=== PATIENT | female | born 1935 | race Caucasian/White ===

== ENCOUNTER 2023-06-21 16:49 | Inpatient (IN) | payer OTHER, SELFPAY ==
[2023-06-21 11:01] VITALS: BP 160/82
--- NOTE | 2023-06-21 11:41 | ED.GENMED ---
History of Present Illness
<Alexandria Dee PA-C - Last Filed: 06/21/23 19:06>
General
Chief Complaint: Breathing Problem
Source: patient, spouse and family (daughter)
Exam Limitations: none
Time Seen by Provider: 06/21/23 11:22
Nursing documentation reviewed up to this point in time: agreed with
Travel History
Have you had any contact with someone who has COVID-19?: No
Do you have any symptoms of coronavirus? Fever > 100 degrees, chills, cough, shortness of breath, sore throat, loss of taste or smell, muscle aches, or headache?: Yes
Symptoms:: SOB and cough
History of Present Illness
History of Present Illness:
Patient is an 88-year-old female with history of CVA, hypertension, hyperlipidemia, pacemaker presenting for evaluation of worsening shortness of breath. Patient endorses a URI a few weeks ago with a productive cough and nasal congestion. Symptoms
seem to improve but over the past week or so shortness of breath has progressively worsened. She notices shortness of breath both at rest and with exertion. She denies any fever, chills, persistent cough, or chest pain. She denies any hematemesis
or black/bloody stool. She denies any GI symptoms.
Patient is on warfarin following a stroke few years ago and has blood counts checked biweekly which have been in normal range.
She denies any recent travel or surgeries. She has no personal or family history of blood clots or clotting disorders.
Past History
<Alexandria Dee PA-C - Last Filed: 06/21/23 19:06>
Past History
ED Past Medical History: Arrthythmia, GERD, HTN and Other (hiatal hernia)
ED Past Surgical History: Cardiac and Orthopedic
Social History
Tobacco: Non-smoker
Alcohol: None
Drug: None
Personal:
Living: with family
Employment: Retired
Phy Exam
<Alexandria Dee PA-C - Last Filed: 06/21/23 19:06>
Physical Exam
Physical Exam:
General: In no apparent distress and non-toxic
Vitals: Hypertensive, otherwise vital signs stable; afebrile
HEENT: Atraumatic, normocephalic; pupils equal round and reactive to light bilaterally protecting airway
Neck: appears supple, no JVD
CV: Regular rate and rhythm, heart sounds normal, no evidence of cyanosis
Resp: No evidence of respiratory distress, scattered crackles at bases, otherwise clear
Abd: Soft, nontender in all 4 quadrants, non-distended
Extremities: No deformities, 2+ pitting edema bilateral lower extremities; DP pulses palpable
Neuro: alert and oriented x 3; grossly intact
Psych: Normal affect
Skin: Intact, some venous stasis changes of bilateral lower legs
Scores
<Alexandria Dee PA-C - Last Filed: 06/21/23 19:06>
Heart Failure Risk
Heart Failure Risk Score: Yes
History of Stroke or TIA: Yes
History of intubation for respiratory distress: No
Heart rate on ED arrival >/= 110: No
SaO2 <90% on arrival on room air: No
HR >/=110 during 3min walk test (or too ill to perform test): No
ECG has acute ischemic changes: No
Urea >/=12mmol/L (BUN 33.6mg/dL): Yes
Serum CO2>/=35mmol/L: Yes
Troponin I or T elevated to MO Level (0.4mg/dL): No
NT-proBNP >/=5,000ng/L (5,000pg/ml): Yes
HF Risk Score: 5
Admission Status: VERY HIGH RISK 39.8% Consider admission to hospital
<Emery Lopez DO - Last Filed: 06/23/23 10:58>
Heart Failure Risk
HF Risk Score: 5
Admission Status: VERY HIGH RISK 39.8% Consider admission to hospital
Course
<Alexandria Dee PA-C - Last Filed: 06/21/23 19:06>
Orders/Labs/Results
Orders:
Orders
06/21/23 11:08
Electrocardiogram (*1) Urgent
Reason for Study: Chest Pain
EKG- Treatment ONCE
06/21/23 11:51
CR Chest - 2 Views Urgent
Comment:
Reason For Exam: shortness of breath
06/21/23 12:02
COVID-19 Antigen Urgent
Source: Nasal Swab
Complete Blood Count/With Diff Urgent
Comprehensive Metabolic Panel Urgent
NT-proBNP Urgent
PTT Urgent
Prothrombin Time Urgent
Influenza A+B Rapid Molecular Urgent
MARIMAR Source: Nasal Swab
Specimen Description:
06/21/23 13:31
Furosemide [Lasix] 40 mg IV ONCE ONE
06/21/23 14:13
Admit Patient As Directed
Co-Sign Provider:
Level of Care: Inpatient admission
Assign to:: Telemetry
Physician / Group: Hang Melendez
Diagnosis: CHF
Reason for Telemetry: Acute Heart Failure
Date to Stop Telemetry: 06/24/23
Time to Stop Telemetry: 11:00
Reason for Hospitalization: CHF
Expected length of stay greater than two midnights?: Yes
ELOS- Estimated Length of Stay in days: 4
I certify the patient meets the requirements for IP care: Yes
06/21/23 14:15
DX Deep Vein Thrombosis Video Routine
06/21/23 16:44
Code Status As Directed
Resuscitation Status: Full Code
06/21/23 18:00
Enoxaparin Sodium [Lovenox] 40 mg SC QPM
06/22/23 08:00
Furosemide [Lasix] 40 mg IV DAILY
06/24/23 11:00
DC Protocol for Telemetry ONCE
Abnormal Lab Results
06/21/23
12:02
Hct 47.1 H %
(37.0-47.0)
MCH 32.6 H pg
(27.0-31.0)
RDW 15.2 H %
(11.5-14.5)
MPV 10.8 H fL
(7.4-10.4)
Absolute Lymphs (auto) 1.0 L 10^3/uL
(1.2-3.4)
Absolute Monos (auto) 1.0 H 10^3/uL
(0.1-0.6)
Neutrophils % 75.8 H %
(42.2-75.2)
Lymphocytes % 11.6 L %
(20.5-51.1)
Monocytes % 11.6 H %
(1.7-9.3)
PT 29.9 H Sec
(11.4-14.6)
APTT 43.3 H Sec
(23.4-35.0)
BUN 40 H mg/dl
(7-17)
Creatinine 1.2 H mg/dL
(0.6-1.0)
Glucose 128 H mg/dl
(70-99)
Total Bilirubin 1.7 H mg/dl
(0.2-1.3)
AST 47 H U/L
(14-36)
Alkaline Phosphatase 289 H U/L
(38-126)
06/21/23 12:02
06/21/23 12:02
Vital Signs
Initial and Last Documented VS:
Initial Vital Signs
Temp Pulse Resp BP Pulse Ox
97.9 F 60 22 160/82 96
06/21/23 11:01 06/21/23 11:01 06/21/23 11:01 06/21/23 11:01 06/21/23 11:01
Last Documented Vital Signs
Temp Pulse Resp BP Pulse Ox
97.8 F 64 18 142/67 95
06/23/23 07:00 06/23/23 10:10 06/23/23 07:00 06/23/23 10:10 06/23/23 07:00
<Emery Lopez, DO - Last Filed: 06/23/23 10:58>
Orders/Labs/Results
Orders:
Orders
06/21/23 11:08
Electrocardiogram (*1) Urgent
Reason for Study: Chest Pain
EKG- Treatment ONCE
06/21/23 11:51
CR Chest - 2 Views Urgent
Comment:
Reason For Exam: shortness of breath
06/21/23 12:02
COVID-19 Antigen Urgent
Source: Nasal Swab
Complete Blood Count/With Diff Urgent
Comprehensive Metabolic Panel Urgent
NT-proBNP Urgent
PTT Urgent
Prothrombin Time Urgent
Influenza A+B Rapid Molecular Urgent
MARIMAR Source: Nasal Swab
Specimen Description:
06/21/23 13:31
Furosemide [Lasix] 40 mg IV ONCE ONE
06/21/23 14:13
Admit Patient As Directed
Co-Sign Provider:
Level of Care: Inpatient admission
Assign to:: Telemetry
Physician / Group: Hang Melendez
Diagnosis: CHF
Reason for Telemetry: Acute Heart Failure
Date to Stop Telemetry: 06/24/23
Time to Stop Telemetry: 11:00
Reason for Hospitalization: CHF
Expected length of stay greater than two midnights?: Yes
ELOS- Estimated Length of Stay in days: 4
I certify the patient meets the requirements for IP care: Yes
06/21/23 14:15
DX Deep Vein Thrombosis Video Routine
06/21/23 16:44
Code Status As Directed
Resuscitation Status: Full Code
06/21/23 18:00
Enoxaparin Sodium [Lovenox] 40 mg SC QPM
06/22/23 08:00
Furosemide [Lasix] 40 mg IV DAILY
06/24/23 11:00
DC Protocol for Telemetry ONCE
Abnormal Lab Results
06/21/23
12:02
Hct 47.1 H %
(37.0-47.0)
MCH 32.6 H pg
(27.0-31.0)
RDW 15.2 H %
(11.5-14.5)
MPV 10.8 H fL
(7.4-10.4)
Absolute Lymphs (auto) 1.0 L 10^3/uL
(1.2-3.4)
Absolute Monos (auto) 1.0 H 10^3/uL
(0.1-0.6)
Neutrophils % 75.8 H %
(42.2-75.2)
Lymphocytes % 11.6 L %
(20.5-51.1)
Monocytes % 11.6 H %
(1.7-9.3)
PT 29.9 H Sec
(11.4-14.6)
APTT 43.3 H Sec
(23.4-35.0)
BUN 40 H mg/dl
(7-17)
Creatinine 1.2 H mg/dL
(0.6-1.0)
Glucose 128 H mg/dl
(70-99)
Total Bilirubin 1.7 H mg/dl
(0.2-1.3)
AST 47 H U/L
(14-36)
Alkaline Phosphatase 289 H U/L
(38-126)
06/21/23 12:02
06/21/23 12:02
Vital Signs
Initial and Last Documented VS:
Initial Vital Signs
Temp Pulse Resp BP Pulse Ox
97.9 F 60 22 160/82 96
06/21/23 11:01 06/21/23 11:01 06/21/23 11:01 06/21/23 11:01 06/21/23 11:01
Last Documented Vital Signs
Temp Pulse Resp BP Pulse Ox
97.8 F 64 18 142/67 95
06/23/23 07:00 06/23/23 10:10 06/23/23 07:00 06/23/23 10:10 06/23/23 07:00
<Alexandria Dee PA-C - Last Filed: 06/21/23 19:06>
MDM/Problems Addressed
Differential Diagnosis Includes:
Pneumonia, CHF exacerbation, COVID/influenza/viral illness, anemia, arrhythmia, bronchitis
MDM/Problems Addressed:
Patient is an 88-year-old female with history of CVA on warfarin, hypertension, hyperlipidemia presenting for evaluation of worsening shortness of breath both at rest and with exertion. Patient does have recent URI symptoms which seem to be
improving. Occasional cough with yellow-colored sputum. No fever, chills, GI symptoms, urinary symptoms. Patient is hypertensive, otherwise vital signs stable. Her oxygen saturation is 95 on room air. Physical exam as documented above. Heart
regular rate and rhythm, lungs with scattered crackles. She does have 2+ bilateral pitting edema lower extremities but neurovascular intact. Will check basic lab, coag studies, proBNP. Will check viral swabs. Will do chest x-ray
COVID and flu negative. CBC without any clinically significant abnormalities. CMP shows mild renal insufficiency but appears to be about patient's baseline. She does have mild elevation of bilirubin but denies any right upper quadrant pain.
proBNP is elevated to 5910. Will correlate with chest x-ray but suspicious of likely CHF exacerbation.
Chest x-ray shows findings of mild CHF with bilateral small pleural effusions. She does also have a fairly large hiatal hernia which may be contributing to symptoms. Given worsening shortness of breath and new onset heart failure-will admit to
hospitalist for further management. Starting 40 mg IV Lasix. Discussed with hospitalist for admission.
Chronic conditions affecting care:
Hypertension, hyperlipidemia
Acute Exacerbation and/or Progression of Chronic Illness:
Acutely hypertensive, acute CHF exacerbation
<Alexandria Dee PA-C - Last Filed: 06/21/23 19:06>
*Radiology
Radiology exam reviewed: preliminary read by ED provider and radiology read reviewed
*Pulse Oximetry
Patient hypoxic: no
*EKG
Interpreted by ED Provider?: Yes
EKG Intrepretation Date: 06/21/23
Interpretation: abnormal
Comparison EKG: changes noted
Heart Rate: 60
Rate: bradycardiac
Rhythm: ventricular paced
[place]: normal axis
Interval: normal interval
QRS Pattern: normal QRS
Ischemia: no ischemia
*[employer]moving [employer] Interpretation
Rate: normal
Interpretation: normal
Heart Rate: 62
Rhythm: sinus
*Critical Care Note
Total Time (30-74mins, 75-104mins- exclusive of procedures): Not Applicable
<Alexandria Dee PA-C - Last Filed: 06/21/23 19:06>
Patient Management
Discussion with other providers: Hospitalist
ED Attending Note
<Alexandria Dee PA-C - Last Filed: 06/21/23 19:06>
-
Portions of this chart may have been created with voice recognition software.� Occasional wrong word or��sound alike� substitutions may have occurred due to the inherent limitations of voice recognition software.
<Emery Lopez DO - Last Filed: 06/23/23 10:58>
ED Attending Note
Patient seen and examined by attending physician: Yes
I performed a history and physical exam of patient and discussed management with resident, I reviewed resident's note and agree with documented findings and plan of care.: Yes
ED Attending Note:
I have reviewed and agree with history and treatment plan by Alexandria Dee. My exam revealed nontoxic 88-year-old female with bilateral crackles and rales at bases, bilateral tibial edema. Alert and oriented. Admit for CHF exacerbation.
Discharge Plan
Departure
Patient Disposition: Admit
Date of Disposition: 06/21/23
Time of Disposition: 13:34
Presentation/result/management discussed w/ accepting MD/DO: Hospitalist
Discharge Problem:
Acute congestive heart failure
Interventions
Interventions:
*Risk Screen - Suicide Last Done: 06/21/23 11:01
*General Assessment Last Done: 06/21/23 11:01
*Neglect/Abuse Screening Last Done: 06/21/23 11:01
ED- Fall Risk Assessment Last Done: 06/21/23 11:44
*ED COVID-19 Vaccine History Last Done: 06/21/23 11:44
*Nursing Disposition Last Done: 06/21/23 19:39
ED- Cardiac Assessment Last Done: 06/21/23 11:44
ED- Pulmonary Assessment Last Done: 06/21/23 11:44
Discharge Date and Time
Discharge Date/Time: 06/21/23 19:39
[2023-06-21 11:42] VITALS: BMI 36.7
[2023-06-21 12:15] LABS: % Basophils 0.4 % (0-2); % Eosinophils 0.5 % (0-6); % Immature Granulocytes 0.1 % (0-0.5); % Lymphocytes 11.6 % (20.5-51.1); % Monocytes 11.6 % (1.7-9.3); % Neutrophils 75.8 % (42.2-75.2); Absolute Neutrophils 6.3 10^3/uL (1.4-6.5); Hematocrit 47.1 % (37.0-47.0); Hemoglobin 15.8 g/dL (12.0-16.0); Mean Corp Hgb Conc. 33.5 g/dL (33.0-37.0); Mean Corpuscular Hgb 32.6 pg (27.0-31.0); Mean Corpuscular Volume 97.1 fL (81.0-99.0); Mean Platelet Volume 10.8 fL (7.4-10.4); Nucleated Red Blood Cells % 0 %; Platelet Count 176 10^3/uL (130-400); Red Blood Cell Count 4.85 10^6/uL (4.20-5.40); Red Cell Dist. Width 15.2 % (11.5-14.5); White Blood Cell Count 8.3 10^3/uL (4.8-10.8)
[2023-06-21 12:25] LABS: APTT 43.3 Sec (23.4-35.0); INR 2.86; PT 29.9 Sec (11.4-14.6)
[2023-06-21 12:27] LABS: ALT (SGPT) 35 U/L (0-35); AST (SGOT) 47 U/L (14-36); Albumin 4.1 g/dl (3.5-5.0); Alkaline Phosphatase 289 U/L (38-126); Blood Urea Nitrogen 40 mg/dl (7-17); Calcium 9.9 mg/dl (8.4-10.2); Carbon Dioxide 30 mmol/L (22-30); Chloride 99 mmol/L (98-107); Estimated Creatinine Clearance 36 ml/min; Glucose 128 mg/dl (70-99); Potassium 3.6 mmol/L (3.5-5.1); Sodium 137 mmol/L (135-145); Total Bilirubin 1.7 mg/dl (0.2-1.3); Total Protein 7.9 g/dl (6.3-8.2); eGFR 43.27
[2023-06-21 12:32] LABS: COVID-19 Antigen Negative (Negative)
[2023-06-21 12:35] LABS: NT-proBNP 5910 pg/ml
[2023-06-21 13:57] VITALS: BP 161/75
[2023-06-21] MEDS: LASIX 40 MG IV (13:58)
[2023-06-21 15:00] VITALS: BP 166/84
[2023-06-21 16:00] VITALS: BP 189/90
--- NOTE | 2023-06-21 16:28 | HPS.HSE ---
Addendum entered and electronically signed by Hang Melendez MD 06/21/23 22:12:
Attending Addendum-
I performed a history and physical exam of the patient and discussed his management with the resident. I reviewed the resident's note and agree with the documented findings and plan of care- patient present with BACA and LE swelling Exam: gen nad
heart RRR pacer present lungs decreased at base abd soft LE-RT>LT 1+ edema Plan: HFpEF exacerbation- cont iv lasix cards consult likely echo daily wieght fluid restrcit PT OT CVA- unclear why on warfarin as no reports of a fib in chart or per
patient apparently on prophylactically per patient. likely DC cont PT OT HTN- stable monitor cont meds Heart block- pacer eval cards c/s
Time spent coordinating care, review of plan of care with resident, review of records, med rec, consults, notes, labs, rads, d/w nursing - 75 mins
Original Note:
Family Physician
<Brennan Roblero MD, Resident - Last Filed: 06/21/23 19:12>
-
Family Physician: Crispin Yost
Chief Complaint
<Brennan Roblero MD, Resident - Last Filed: 06/21/23 19:12>
-
Shortness of Breath
History of Present Illness
This is an 88y/o female with history of CVA, hypertension, hyperlipidemia who presents to the ED for evaluation of worsening shortness of breath. Patient reports she had a URI 3 weeks ago, along with nasal cogestion and productive cough with clear
sputum lasting 5 days. She reports symptoms of URI improved including cough but shortness of breath persisted. She did not take any medication for her symptoms. Since then, she has been experiencing shortness of breath on rest and exertion, hence
decided to come to the ED for evaluation. She denies any fever, chills, persistent cough, or chest pain.
Patient reports 'her primary care provider switched her medication from Eliquis to Warfarin 4 months after she had a stroke to lower her risk for stroke in the future. She has no personal or family history of blood clots or clotting disorders'
Medical History
<Brennan Roblero MD, Resident - Last Filed: 06/21/23 19:12>
Past Medical History
Past Medical History: Reports HTN and Other (Osteoarthritis, htn, HLD, Hx of Complete Heart Block, CKD IIIb baseline Creatinine 1.2, hiatal Hernia)
Past Surgical History: Reports Other (Pacemaker inserted August 2008)
Social History
Tobacco: Non-smoker
Alcohol: None
Drug: None
Personal:
Living: With Family
Employment: Retired
Family History
Family History: Not pertinent
Allergies / Home Medications
Allergies reflects when Allergies were last updated in [facility].
Home Medications with original date entered in [facility]
Allergy/Medication List:
Allergies
Allergy/AdvReac Type Severity Reaction Status Date / Time
adhesive tape Allergy redness Verified 06/21/23 11:02
latex Allergy rash, Verified 06/21/23 11:02
reddened
Home Medications
metoprolol tartrate 50 mg tablet 25 mg PO QPM 11/15/15
metoprolol tartrate 50 mg tablet 50 mg PO DAILY 11/15/15
Fish Oil 1,400 mg PO DAILY 06/21/23
Vitamin C 1 tab PO DAILY 06/21/23
aspirin 81 mg tablet,delayed release 81 mg PO DAILY 06/21/23
atorvastatin 40 mg tablet 40 mg PO QPM 06/21/23
cholecalciferol (vitamin D3) 50 mcg (2,000 unit) tablet 50 mcg PO DAILY 06/21/23
hydrochlorothiazide 25 mg tablet 25 mg PO DAILY 06/21/23
losartan 50 mg tablet 50 mg PO BID 06/21/23
docynnznypdg-nyvbngua-piblfa tablet 1 tab PO DAILY 06/21/23
warfarin 1 mg tablet 1.5 mg PO QPM 06/21/23
Review of Systems
<Brennan Roblero MD, Resident - Last Filed: 06/21/23 19:12>
-
History Source: Patient
A 12 point ROS was completed and negative except as noted: Yes
Constitutional: Reports No Symptoms
EENT: Reports No Symptoms
Respiratory: Reports Other (Stable on Examination)
Cardiac: Reports No Symptoms
Abdomen/GI: Reports No Symptoms
: Reports No Symptoms
Musculoskeletal: Reports Edema (Bilateral Peripheral Edema R>L)
Skin: Reports No Symptoms
Neurological: Reports No Symptoms
Endocrine: Reports No Symptoms
Hematologic/Lymphatic: Reports No Symptoms
Psych: Reports No Symptoms
Physical Exam
<Brennan Roblero MD, Resident - Last Filed: 06/21/23 19:12>
Vital Signs
Vital Signs
Temp Pulse Resp BP Pulse Ox
97.9 F 60 24 189/90 95
06/21/23 11:01 06/21/23 16:15 06/21/23 16:15 06/21/23 16:00 06/21/23 16:15
Physical Exam
General: Well Developed and No Apparent Distress; No Respiratory Distress
HEENT: NormoCephalic and Moist mucous membranes
Respiratory: Decreased Breath Sounds (decreased at right lung base) and Other (no evidence of respiratory distress)
Cardiac: S1/S2 and Regular Rhythm
GI: Soft, Non Tender, Non Distended and Normal Bowel Sounds
Musculoskeletal: No Clubbing, No Cyanosis, Edema, Left Upper Extremity and Edema, Right Upper Extremity
Skin: Warm and Dry
Neuro: Awake, Alert, Oriented and AO x 3
Psych: Calm and Intact Judgment/Insight
Laboratory Results
<Brennan Roblero MD, Resident - Last Filed: 06/21/23 19:12>
-
06/21/23 12:02
06/21/23 12:02
Laboratory Results
PT 29.9 Sec (11.4-14.6) H 06/21/23 12:02
INR 2.86 06/21/23 12:02
APTT 43.3 Sec (23.4-35.0) H 06/21/23 12:02
Total Bilirubin 1.7 mg/dl (0.2-1.3) H 06/21/23 12:02
AST 47 U/L (14-36) H 06/21/23 12:02
ALT 35 U/L (0-35) 06/21/23 12:02
Alkaline Phosphatase 289 U/L (38-126) H 06/21/23 12:02
<Hang Melendez MD - Last Filed: 06/21/23 22:06>
-
Diagnostic Radiology: Image Personally Visualized and interpreted and Report Reviewed by me
Medical Tests (Nuc Med, Echo, EKG etc): Report Reviewed by me
Lab Data: Labs Reviewed by me
Impression/Plan
<Brennan Roblero MD, Resident - Last Filed: 06/21/23 19:12>
-
IMPRESSION:88y/o female with worsening shortness of breath, bilateral peripheral edema R>L
Impression:
Acute Hypoxic Respiratory failure, new onset CHF
Plan:
#Acute Hypoxic Respiratory failure, new onset CHF
-BNP 5910
-CXR Borderline CHF. Small left and trace right pleural effusions with associated probable atelectasis.
-IV Lasix 40mg
-Obtain Echo
-Input/Output
-Daily weight
-Consult Cardio
-Fluid Restrict 1800
-Wean O2 for sat >92%
#Bilateral Peripheral Edema Right Greater than Left
- Doppler Ultrasound
#Hypertension
-Continue Home Meds
#History of CVA
-Continue Warfarin with Therapeutic INR goal 2.0-3
-Measure INR in AM
#Gerd
-Continue PPI
#CKD IIIb
-Avoid Nephrotoxic agents.
DVT Prophylaxis: Lovenox
Code Status: Full Code
[2023-06-21 20:15] VITALS: BP 148/72; BMI 35.2
--- NOTE | 2023-06-21 20:45 | PTCARENOTE ---
Received patient from ED via stretcher. Patient pulled over from stretcher to bed with assistance. Oriented patient to room and placed call khan within reach.
[2023-06-21] MEDS: LOVENOX 40 MG SC (21:40)
[2023-06-21] MEDS: LOPRESSOR 25 MG PO (21:40)
[2023-06-21] MEDS: COZAAR 50 MG PO (21:40)
[2023-06-21 23:20] VITALS: BP 171/78
[2023-06-22] VITALS (7 sets, daily range): BP systolic 132–158; BP diastolic 64–77; BMI 35.1
[2023-06-22 08:19] LABS: % Basophils 0.3 % (0-2); % Eosinophils 0.3 % (0-6); % Immature Granulocytes 0.2 % (0-0.5); % Monocytes 13.6 % (1.7-9.3); % Neutrophils 74.6 % (42.2-75.2); Absolute Monocytes 1.2 10^3/uL (0.1-0.6); Absolute Neutrophils 6.4 10^3/uL (1.4-6.5); Hematocrit 44.5 % (37.0-47.0); Hemoglobin 15.4 g/dL (12.0-16.0); Mean Corp Hgb Conc. 34.6 g/dL (33.0-37.0); Mean Corpuscular Hgb 32.9 pg (27.0-31.0); Mean Corpuscular Volume 95.1 fL (81.0-99.0); Mean Platelet Volume 10.6 fL (7.4-10.4); Nucleated Red Blood Cells % 0 %; Platelet Count 160 10^3/uL (130-400); Red Blood Cell Count 4.68 10^6/uL (4.20-5.40); Red Cell Dist. Width 15.2 % (11.5-14.5); White Blood Cell Count 8.6 10^3/uL (4.8-10.8)
[2023-06-22 08:32] LABS: INR 2.56; PT 27.9 Sec (11.4-14.6)
--- NOTE | 2023-06-22 08:43 | CON.CAR ---
Addendum entered and electronically signed by Kev Sams MD 06/22/23 13:19:
I saw and examined the patient.
The Aircraft Body Repairer's note was reviewed and I agree with the note.
Comment:
GEN: No distress, awake, Ox3
HEENT: supple, anicteric, mmm
LUNGS: scatt rhonchi
CV: Reg, S1/S2, 2/6 syst apex
ABD: soft, BS+, NT/ND
EXT: trace edema
NEURO: Gross non-focal
SKIN: No rash
Plan:
She presents with acute on chronic heart failure with preserved ejection fraction with moderate mitral stenosis and regurgitation and moderate aortic stenosis. Start Lasix 40 mg IV twice daily. proBNP is 5900.
Will switch Lopressor to Toprol-XL and continue losartan. Will recheck echocardiogram to reevaluate LVEF and valves.
Will stop hydrochlorothiazide.
Will look into Jardiance cost.
Continue Coumadin with history of pacemaker for permanent atrial fibrillation.
Original Note:
Consultation
Consultation Request
Date/Time Consultation Requested: 06/21/23 at 1800
Date/Time Consultation Performed: 06/22/23 at 0843
Requesting Provider: Dr. Melendez
Performing Provider: Dr. Sams
Reason for Consultation: Acute HF
Medical History
-
History of Present Illness:
Patient came to [facility] yesterday with URI symptoms for 2 weeks and was admitted with acute HF and cardiology has been consulted. Leonid says that she started with congestion, cough and SOB int he last 2 weeks. No chest pain. She was not getting
better and started with orthopnea and LE edema so she came to [facility] yesterday and her pro-BNP was 5910 with small left and trace right pleural effusions on CXR. Patient was given Lasix 40 mg IV x1 and reports increased urine output and improvement in
resting SOB, but she continues with orthopnea.
PMH:
EF 55-60% by echo 10/31/20
Mild to mod eccentric MR and mod MS with mean gradient 7 mmHg by echo 10/31/20
Mild to mod with mean gradient 16 mmHg by echo 10/31/20
Permanent Afib
Chronic warfarin OAC
previously on Eliquis, but switched to warfarin after CVA managed at [facility] 08/2021
[facility] PPM since 2008, gen change 2015
h/o endometrial cancer managed with hysterectomy and BSO 2018
Past Medical History
Past Medical History: Other (in HPI)
Past Surgical History: Cardiac ([facility] PPM 2015), Cholecystectomy, Gynecological (hysterectomy, BSO) and Orthopedic
Social History
Tobacco: Non-Smoker
Alcohol: None
Drug: None
Personal:
Living: With Family
Family History
Family History: Reviewed & Not Pertinent
Allergies / Home Medications
Allergy/AdvReac Type Severity Reaction Status Date / Time
adhesive tape Allergy redness Verified 06/21/23 11:02
latex Allergy rash, Verified 06/21/23 11:02
reddened
Medication Instructions Recorded Confirmed Type
metoprolol tartrate 50 mg tablet 25 mg PO QPM 11/15/15 06/21/23 History
metoprolol tartrate 50 mg tablet 50 mg PO DAILY 11/15/15 06/21/23 History
Fish Oil 1,400 mg PO DAILY 06/21/23 06/21/23 History
Vitamin C 1 tab PO DAILY 06/21/23 06/21/23 History
aspirin 81 mg tablet,delayed 81 mg PO DAILY 06/21/23 06/21/23 History
release
atorvastatin 40 mg tablet 40 mg PO QPM 06/21/23 06/21/23 History
cholecalciferol (vitamin D3) 50 50 mcg PO DAILY 06/21/23 06/21/23 History
mcg (2,000 unit) tablet
hydrochlorothiazide 25 mg tablet 25 mg PO DAILY 06/21/23 06/21/23 History
losartan 50 mg tablet 50 mg PO BID 06/21/23 06/21/23 History
meppfbebowos-zqcrmyuo-hhjrpq tablet 1 tab PO DAILY 06/21/23 06/21/23 History
warfarin 1 mg tablet 1.5 mg PO QPM 06/21/23 06/21/23 History
Review of Systems
-
History Source: Patient
All other systems: Negative unless noted
Physical Exam
Vital Signs
Temp Pulse Resp BP Pulse Ox
97.7 F 61 16 147/76 96
06/22/23 03:20 06/22/23 03:20 06/22/23 03:20 06/22/23 03:20 06/22/23 03:20
GEN: NAD. AAOx3
HEENT: EOMI, MMM
LUNGS: CTA B/L, no wheezes/rales
CV: Reg, S1/S2, 2/6 systolic murmur
ABD: soft, BS+, NT, ND
EXT: +1 pitting B/L LE edema. No clubbing, cyanosis, lesions B/L
NEURO: Gross non-focal
SKIN: No rash
Lab Results
06/22/23 07:29
Ljx-Y-Xlzmbzgiwko Pept 5910 pg/ml 06/21/23 12:02
Impression / Plan
-
PCP: Dr. Crispin Yost
Cardiology: Dr. Damon
Impression:
Acute HFpEF
EF 55-60% by echo 10/31/20
Mild to mod eccentric MR and mod MS with mean gradient 7 mmHg by echo 10/31/20
Mild to mod with mean gradient 16 mmHg by echo 10/31/20
Permanent Afib
Chronic warfarin OAC
previously on Eliquis, but switched to warfarin after CVA managed at [facility] 08/2021
[facility] PPM since 2008, gen change 2015
h/o endometrial cancer managed with hysterectomy and BSO 2018
Echo 10/31/20: EF 55-60%, stage II diastolic dysfunction, mild to mod MS with mean gradient 7 mmHg and mod eccentric MR, mild to mod with mean gradient 16 mmHg and CHINEDU 1.7 cm sq, mild aortic insufficiency
Plan:
-Patient came to [facility] yesterday with URI symptoms for 2 weeks and was admitted with acute HF and cardiology has been consulted. Patient says that she started with congestion, cough and SOB int he last 2 weeks. No chest pain. She was not getting
better and started with orthopnea and LE edema so she came to [facility] yesterday and her pro-BNP was 5910 with small left and trace right pleural effusions on CXR. Patient was given Lasix 40 mg IV x1 and reports increased urine output and improvement in
resting SOB, but she continues with orthopnea.
-Recommend ongoing Lasix 40 mg IV daily. Weight is down at least 1 lbs possibly more depending on the accuracy of the admission weight.
-Stop HCTZ, patient will need loop diuretic upon discharge
-Check echo. EF previously preserved with MS, MR and . Reviewed with patient that some of her valve disease may have progressed leading to acute HF.
-Try B/L LE tubigrips to help with LE edema.
-Patient indicates that she wants to go home today, but has ongoing orthopnea. Patient says that she plans on buying an adjustable bed for home, but suggested that instead she remain in the hospital for ongoing diuresis.
-Patient with permanent Afib and HRs controlled on Lopressor 50 mg AM and 25 mg PM daily.
-INR 2.56 this morning with INR goal of 2-3 with INRs being drawn by [facility] and then managed by [facility]. Patient was previously on Eliquis, but was switched to warfarin when she had a CVA in 2021. No recurrent events.
-ECG reviewed by me is v paced and she was placed in VVIR at last office visit.
[2023-06-22 08:47] LABS: ALT (SGPT) 29 U/L (0-35); AST (SGOT) 38 U/L (14-36); Albumin 3.6 g/dl (3.5-5.0); Alkaline Phosphatase 197 U/L (38-126); Blood Urea Nitrogen 42 mg/dl (7-17); Calcium 9.9 mg/dl (8.4-10.2); Carbon Dioxide 31 mmol/L (22-30); Chloride 96 mmol/L (98-107); Estimated Creatinine Clearance 35 ml/min; Glucose 107 mg/dl (70-99); Potassium 3.4 mmol/L (3.5-5.1); Sodium 139 mmol/L (135-145); Total Bilirubin 2.1 mg/dl (0.2-1.3); eGFR 43.27
[2023-06-22] MEDS: ORETIC 25 MG PO (10:15)
[2023-06-22] MEDS: COZAAR 50 MG PO ×2 (10:15→20:29)
[2023-06-22] MEDS: LOPRESSOR 50 MG PO (10:15)
[2023-06-22] MEDS: VITAMIN D3 (cholecalciferol) 50 MCG PO (10:15)
[2023-06-22] MEDS: FLUSH (NSS) 2 FLUSH IV (10:16)
[2023-06-22] MEDS: LASIX 40 MG IV (10:16)
[2023-06-22 10:33] LABS: Direct Bilirubin 0.2 mg/dl (0.0-0.4)
--- NOTE | 2023-06-22 17:40 | W.PN.HOSP.TC ---
Addendum entered and electronically signed by Hang Melendez MD 06/22/23 22:37:
Attending Addendum-
I saw and evaluated the patient. I reviewed the resident�s note and agree with findings and plan as documented in the resident�s note- still with BACA edema improved Exam: gen nad heart RRR pacer present lungs decreased at base abd soft LE-b/l 1+
edema Plan:
# AE HFpEF- increase iv lasix appreciate cards input check echo daily weight fluid restrict PT OT may add jardiance
# Permanent Atrial Fibrillation- cont coumadin at same dose review and maintain INR @ 2-3 change to toprol xl cont arb check echo
# Hypokalemia- repleat repeat BMP in am
# HTN- stable monitor DC hctz
# Heart block with pacer- pacer dependent check echo cards on board
Time spent coordinating care, review of plan of care with resident, review of records, med rec, consults, notes, labs, rads, d/w nursing - 55 mins
Original Note:
Documented by User: Brennan Roblero MD, Resident 06/22/23 18:01
Today's Communication/Plan
-
see A/P
Assessment / Plan
Assessment / Plan
Impression:
Acute HFpEF
Permanent Afib
Plan
#Acute HFpEF
-BNP 5910
-CXR Borderline CHF. Small left and trace right pleural effusions with associated probable atelectasis.
-Continue IV Lasix 40mg
-Obtain Echo
-Input/Output
-Daily weight
-Cardio input appreciated
#Permanent atrial fibrillation with Pacemaker
-Continue Coumadin
-Monitor INR
-Cardiology input, Switch Lopressor to Long Acting Metoprolol
#Hypokalemia
-Replete K+
#Hypertension
-Per cardiology input, Stop HCTZ, continue Losartan
#Gerd
-Continue PPI
PT/OT
Code Status: Full Code
Anticipated Discharge: 24 - 48 hours
Objective Data
-
Labs:
Laboratory Results
06/22/23
07:29
WBC 8.6
Hgb 15.4
Hct 44.5
Plt Count 160
PT 27.9 H
INR 2.56
Sodium 139
Potassium 3.4 L
Chloride 96 L
Carbon Dioxide 31 H
BUN 42 H
Creatinine 1.2 H
Glucose 107 H
Calcium 9.9
Total Bilirubin 2.1 H
AST 38 H
ALT 29
Alkaline Phosphatase 197 H
Vital Signs:
Vital Signs
Temp Pulse Resp BP Pulse Ox
97.9 F 62 18 150/73 92
06/22/23 15:34 06/22/23 15:34 06/22/23 15:34 06/22/23 15:34 06/22/23 15:34
I&O
06/21/23 06/22/23 06/23/23
06:59 06:59 06:59
Intake Total 480 / 480
Output Total 1800 / 1800
Balance -1320 / -1320
Review of Systems
-
History Source: Patient
Constitutional: Reports No Symptoms
EENT: Reports No Symptoms Reported
Respiratory: Reports No Symptoms
Cardiac: Reports No Symptoms
Abdomen/GI: Reports No Symptoms
Genitourinary: Reports No Symptoms
Musculoskeletal: Reports Edema (1+ pitting Bilateral LE Edema. )
Skin: Reports No Symptoms
Neuro: Reports No Symptoms
Endocrine: Reports No Symptoms
Physical Exam
-
General: Well Developed, Well Nourished and No Apparent Distress
Respiratory: Clear to Auscultation; Negative Wheezes or Rales
Cardiac: Regular Rhythm and S1/S2
GI: Soft, Nontender and Nondistended
Musculoskeletal: No Clubbing, No Cyanosis and Other (+1 pitting B/L LE edema)
Skin: Warm and Dry
Neuro: Awake, Alert, Oriented and AO x 3
Psych: Calm
Data Reviewed
-
Diagnostic Radiology: Discussed with Physician and Discussed with Patient
Labs: Labs Reviewed by me and Discussed with Physician

Documented by User: Hang Melendez MD 06/22/23 22:28
Assessment / Plan
Assessment / Plan
Anticipated Discharge: > 48 hours
[2023-06-22] MEDS: KCL 40 MEQ PO (17:44)
[2023-06-22] MEDS: COUMADIN 1.5 MG PO (17:44)
[2023-06-22] MEDS: LIPITOR 40 MG PO (17:45)
[2023-06-23] VITALS (7 sets, daily range): BP systolic 103–159; BP diastolic 64–91; PULSE 60; O2SAT 94; BMI 34.8
[2023-06-23 07:38] LABS: INR 2.65; PT 28.6 Sec (11.4-14.6)
[2023-06-23 07:50] LABS: % Basophils 0.3 % (0-2); % Eosinophils 0.3 % (0-6); % Immature Granulocytes 0.2 % (0-0.5); % Monocytes 14.3 % (1.7-9.3); % Neutrophils 73.9 % (42.2-75.2); Absolute Monocytes 1.3 10^3/uL (0.1-0.6); Absolute Neutrophils 6.5 10^3/uL (1.4-6.5); Hemoglobin 15.5 g/dL (12.0-16.0); Mean Corp Hgb Conc. 34.4 g/dL (33.0-37.0); Mean Corpuscular Hgb 33.2 pg (27.0-31.0); Mean Corpuscular Volume 96.4 fL (81.0-99.0); Mean Platelet Volume 11.1 fL (7.4-10.4); Nucleated Red Blood Cells % 0 %; Platelet Count 169 10^3/uL (130-400); Red Blood Cell Count 4.67 10^6/uL (4.20-5.40); Red Cell Dist. Width 15.3 % (11.5-14.5); White Blood Cell Count 8.9 10^3/uL (4.8-10.8)
[2023-06-23 08:20] LABS: Blood Urea Nitrogen 44 mg/dl (7-17); Calcium 9.3 mg/dl (8.4-10.2); Carbon Dioxide 34 mmol/L (22-30); Chloride 99 mmol/L (98-107); Estimated Creatinine Clearance 32 ml/min; Glucose 115 mg/dl (70-99); Potassium 3.4 mmol/L (3.5-5.1); Sodium 136 mmol/L (135-145); eGFR 39.31
[2023-06-23] MEDS: COZAAR 50 MG PO ×2 (09:44→20:35)
[2023-06-23] MEDS: LASIX 40 MG IV ×2 (09:45→16:19)
[2023-06-23] MEDS: VITAMIN D3 (cholecalciferol) 50 MCG PO (09:45)
--- NOTE | 2023-06-23 10:00 | W.PN.CARDCBS ---
Addendum entered and electronically signed by Rigo Villa MD 06/23/23 11:11:
I saw and examined the patient.
The Antique Jewelry Repairer's note was reviewed and I agree with the note.
Comment: Briefly, 88-year-old woman past medical history of heart failure with preserved ejection fraction, prior atrial fibrillation, status post pacemaker who presents in decompensated heart failure
Volume status seems to be improving with IV Lasix
Renal function remains stable
Will give additional IV Lasix today
Hopefully able to transition to p.o. Lasix in the next 24 to 48 hours
Original Note:
Today's Communication / Plan
-
Will try another dose of Lasix 40 mg IV this evening
KCl 40 meq PO x1 now ordered
Echo stable
Impression / Plan
-
PCP: Dr. Crispin Yost
Cardiology: Dr. Damon
Impression:
Acute HFpEF
EF 55-60% by echo 10/31/20
Mild to mod eccentric MR and mod MS with mean gradient 7 mmHg by echo 10/31/20, mean gradient 5 mmHg by echo 06/22/23
Mild to mod with mean gradient 16 mmHg by echo 10/31/20, mean gradient improved to 14 mmHg by echo 06/22/23
Permanent Afib
Chronic warfarin OAC
previously on Eliquis, but switched to warfarin after CVA managed at [facility] 08/2021
[facility] PPM since 2008, gen change 2015
h/o endometrial cancer managed with hysterectomy and BSO 2018
Hypokalemia
Echo 10/31/20: EF 55-60%, stage II diastolic dysfunction, mild to mod MS with mean gradient 7 mmHg and mod eccentric MR, mild to mod with mean gradient 16 mmHg and CHINEDU 1.7 cm sq, mild aortic insufficiency
Echo 06/22/23: EF 55-60%, stage II diastolic dysfunction, MS with mean gradient 5 mmHg and mod eccentric MR, mild with peak/mean 23/14 mmHg and mild aortic regurgitation
Plan:
-Weight is down 2 lbs overnight with Lasix 40 mg IV daily. Will try an additional dose of Lasix 40 mg IV x1 on 06/23/23 evening. Patient was taking HCTZ prior to admission and this should be stopped. Patient will need Lasix 40 mg PO daily upon
discharge to home.
-Ongoing orthopnea, but improved LE edema.
-Potassium down to 3.4. KCl 40 meq PO x1 now ordered by me. Check magnesium level.
-EF stable and stable MS and . Reviewed valve disease with patient and the need for ongoing Lasix, BB and regular cardiology office visits upon discharge.
-PT eval as patient reports a desire to return home.
- overnight noted and patient recalls waking up confused, but she feels oriented now.
-Patient with permanent Afib. Outpatient dose of Lopressor changed to Toprol XL 25 mg BID given acute HF. Follow BP and HR
-INR 2.65 06/23/23. Outpatient dose of warfarin 1.5 mg daily ordered. INR goal of 2-3 with INRs being drawn by [facility] and then managed by [facility]. Patient was previously on Eliquis, but was switched to warfarin when she had a CVA in 2021. No recurrent
events.
-D/C pending ongoing symptomatic improvement
HPI: Patient came to [facility] yesterday with URI symptoms for 2 weeks and was admitted with acute HF and cardiology has been consulted. Patient says that she started with congestion, cough and SOB int he last 2 weeks. No chest pain. She was not getting
better and started with orthopnea and LE edema so she came to [facility] yesterday and her pro-BNP was 5910 with small left and trace right pleural effusions on CXR. Patient was given Lasix 40 mg IV x1 and reports increased urine output and improvement in
resting SOB, but she continues with orthopnea.
Progress Note - Chief Diversity Officer
Subjective
Date of Service: June 23, 2023
She is still orthopneic
Objective
Labs:
06/23/23 07:06
06/23/23 07:06
Labs
Hgb 15.5 g/dL (12.0-16.0) 06/23/23 07:06
Hct 45.0 % (37.0-47.0) 06/23/23 07:06
Plt Count 169 10^3/uL (130-400) 06/23/23 07:06
PT 28.6 Sec (11.4-14.6) H 06/23/23 07:06
INR 2.65 06/23/23 07:06
APTT 43.3 Sec (23.4-35.0) H 06/21/23 12:02
Sodium 136 mmol/L (135-145) 06/23/23 07:06
Potassium 3.4 mmol/L (3.5-5.1) L 06/23/23 07:06
BUN 44 mg/dl (7-17) H 06/23/23 07:06
Creatinine 1.3 mg/dL (0.6-1.0) H 06/23/23 07:06
Glucose 115 mg/dl (70-99) H 06/23/23 07:06
Vital Signs and I&O:
Vital Signs
Temp Pulse Resp BP Pulse Ox
97.8 F 64 18 142/67 95
06/23/23 07:00 06/23/23 09:45 06/23/23 07:00 06/23/23 09:45 06/23/23 07:00
Vital Signs
Temp Pulse Resp BP Pulse Ox
97.8 F 64 18 142/67 95
06/23/23 07:00 06/23/23 09:45 06/23/23 07:00 06/23/23 09:45 06/23/23 07:00
Intake & Output
06/21/23 06/22/23 06/23/23 06/24/23
06:59 06:59 06:59 06:59
Intake Total 480 / 480 840 / 840
Output Total 1800 / 1800 1600 / 1600
Balance -1320 / -1320 -760 / -760
Physical Exam
Physical Exam
GEN: AAOx3
HEENT: EOMI
LUNGS: CTA B/L
CV: Paced, 2/6 systolic murmur
ABD: soft, BS+, NT, ND
EXT: No edema B/L LE
NEURO: Gross non-focal
SKIN: No rash
[2023-06-23] MEDS: TOPROL XL 25 MG PO ×2 (10:10→20:35)
[2023-06-23] MEDS: KCL 40 MEQ PO (10:18)
[2023-06-23 11:33] LABS: Magnesium 1.5 mg/dl (1.6-2.3)
--- NOTE | 2023-06-23 16:21 | W.PN.HOSP.TC ---
Addendum entered and electronically signed by Hang Melendez MD 06/23/23 22:31:
Attending Addendum-
I saw and evaluated the patient. I reviewed the resident�s note and agree with findings and plan as documented in the resident�s note-� did not get out of bed since admission, edema improved Exam: gen nad heart RRR pacer present lungs decreased at
base abd soft LE-b/l 1+ edema Plan:
# AE HFpEF- increase iv lasix appreciate cards input check echo-reviewed ef 55-60% daily weight fluid restrict PT OT may add jardiance as OP
# Permanent Atrial Fibrillation- INR therapeutic, cont coumadin at same dose review and maintain INR @ 2-3 changed to toprol xl cont arb
# Hypokalemia- repleat repeat BMP in am
# HTN- stable monitor DC hctz
# Heart block with pacer- pacer dependent check echo cards on board
Dispo- DC in 24 to 48 hours if not ambulating may require snf
Time spent coordinating care, review of plan of care with resident, review of records, med rec, consults, notes, labs, rads, d/w nursing, family - 52 mins
Original Note:
Documented by User: Brennan Roblero MD, Resident 06/23/23 16:32
Today's Communication/Plan
-
Volume status improving on Lasix
PT to evaluate
Transition to Oral Lasix as outpatient.
Assessment / Plan
Assessment / Plan
Impression:
Acute HFpEF
Permanent Afib
Plan
#Acute HFpEF
-Weight improved 2lbs overnight
-Lasix 40mg IV, transition to oral Lasix outpatient
-PT/OT evaluation
-Echo 06/22/23 EF 55-60%, stage II diastolic dysfunction, MS with mean gradient 5 mmHg and mod eccentric MR, mild with peak/mean 23/14 mmHg and mild aortic regurgitation
-Input/Output
-Daily weight
-Follow up with cardiology outpatient.
#Permanent atrial fibrillation with Pacemaker
-Continue Coumadin
-Monitor INR
-Toprolol XL 25mg BID
#Hypokalemia
-Replete K+
#Hypertension
-Stable. Continue to monitor
#Gerd
-Continue PPI
PT/OT
Code Status: Full Code
Anticipated Discharge: Within 24 hours
Subjective/Interval History
-
Patient reports improvement in symptoms. Reports shortness of breath improved. Hasn't walked out of bed. PT/OT To evaluate.
Objective Data
-
Labs:
Laboratory Results
06/23/23
07:06
WBC 8.9
Hgb 15.5
Hct 45.0
Plt Count 169
PT 28.6 H
INR 2.65
Sodium 136
Potassium 3.4 L
Chloride 99
Carbon Dioxide 34 H
BUN 44 H
Creatinine 1.3 H
Glucose 115 H
Calcium 9.3
Vital Signs:
Vital Signs
Temp Pulse Resp BP Pulse Ox
98.1 F 60 18 155/88 95
06/23/23 15:00 06/23/23 15:00 06/23/23 15:00 06/23/23 15:00 06/23/23 15:00
I&O
06/22/23 06/23/23 06/24/23
06:59 06:59 06:59
Intake Total 480 / 480 840 / 840
Output Total 1800 / 1800 1600 / 1600 800 / 800
Balance -1320 / -1320 -760 / -760 -800 / -800
Review of Systems
-
All other systems: Reviewed and negative (except as documented)
Constitutional: Reports No Symptoms
Respiratory: Reports No Symptoms
Cardiac: Reports No Symptoms
Physical Exam
-
General: Well Developed, Well Nourished and No Apparent Distress
HEENT: Normocephalic and Atraumatic
Respiratory: Crackles; Negative Wheezes or Rales
Cardiac: Regular Rhythm and S1/S2
GI: Soft, Nontender and Nondistended
Musculoskeletal: No Edema
Skin: Warm and Dry
Neuro: Awake, Alert, Oriented and AO x 3
Psych: Calm
Data Reviewed
-
Labs: Labs Reviewed by me and Discussed with Physician

Documented by User: Hang Melendez MD 06/23/23 22:25
Review of Systems
-
All other systems: Reviewed and negative (12 point ROS reviewed except as documented)
[2023-06-23] MEDS: TYLENOL 650 MG PO (16:35)
[2023-06-23] MEDS: LIPITOR 40 MG PO (18:51)
[2023-06-23] MEDS: COUMADIN 1.5 MG PO (18:51)
[2023-06-23] MEDS: KCL 20 MEQ PO (20:35)
[2023-06-24 03:45] VITALS: BP 146/74
[2023-06-24 04:40] VITALS: BMI 33.7
[2023-06-24 04:51] LABS: % Basophils 0.2 % (0-2); % Eosinophils 0.3 % (0-6); % Immature Granulocytes 0.3 % (0-0.5); % Lymphocytes 8.3 % (20.5-51.1); % Monocytes 15.8 % (1.7-9.3); % Neutrophils 75.1 % (42.2-75.2); Absolute Monocytes 1.8 10^3/uL (0.1-0.6); Absolute Neutrophils 8.6 10^3/uL (1.4-6.5); Hematocrit 46.3 % (37.0-47.0); Hemoglobin 15.8 g/dL (12.0-16.0); Mean Corp Hgb Conc. 34.1 g/dL (33.0-37.0); Mean Corpuscular Hgb 32.8 pg (27.0-31.0); Mean Corpuscular Volume 96.1 fL (81.0-99.0); Mean Platelet Volume 10.8 fL (7.4-10.4); Nucleated Red Blood Cells % 0 %; Platelet Count 156 10^3/uL (130-400); Red Blood Cell Count 4.82 10^6/uL (4.20-5.40); Red Cell Dist. Width 15.1 % (11.5-14.5); White Blood Cell Count 11.5 10^3/uL (4.8-10.8)
[2023-06-24 05:01] LABS: INR 3.07; PT 32.1 Sec (11.4-14.6)
[2023-06-24 05:17] LABS: Blood Urea Nitrogen 53 mg/dl (7-17); Calcium 9.4 mg/dl (8.4-10.2); Carbon Dioxide 36 mmol/L (22-30); Chloride 92 mmol/L (98-107); Estimated Creatinine Clearance 32 ml/min; Glucose 118 mg/dl (70-99); Magnesium 1.5 mg/dl (1.6-2.3); Potassium 3.4 mmol/L (3.5-5.1); Sodium 138 mmol/L (135-145); eGFR 39.31
[2023-06-24 08:00] VITALS: BP 168/80
[2023-06-24] MEDS: VITAMIN D3 (cholecalciferol) 50 MCG PO (08:49)
[2023-06-24] MEDS: TOPROL XL 25 MG PO (08:49)
[2023-06-24] MEDS: COZAAR 50 MG PO (08:49)
[2023-06-24] MEDS: LASIX 40 MG IV (08:50)
[2023-06-24] MEDS: FLUSH (NSS) 2 FLUSH IV (08:50)
[2023-06-24 09:17] VITALS: BMI 33.7
--- NOTE | 2023-06-24 09:43 | W.PN.HOSP.TC ---
Addendum entered and electronically signed by Hang Melendez MD 06/24/23 21:17:
Attending Addendum-
I saw and evaluated the patient. I reviewed the resident�s note and agree with findings and plan as documented in the resident�s note-�patient ready to go home, ambulationg with much less SOB. Exam: gen nad heart RRR pacer present lungs decreased
at base abd soft LE-b/l trace+ edema Plan:
# AE HFpEF- transition to PO lasix on DC. appreciate cards input add jardiance as OP
# Permanent Atrial Fibrillation- INR therapeutic, cont coumadin at same dose review and maintain INR @ 2-3 changed to toprol xl cont arb
# Hypokalemia- replete repeat BMP as op add po KCL on DC
# CKD 3b- avoid nephrotoxic agenets f/u as OP
# Hypomagnesemia- replete repeat mg as OP
# HTN- stable monitor DC hctz
# Heart block with pacer- pacer dependent check echo cards on board
Dispo- DC to home today
Time spent coordinating care, review of plan of care with resident, transition of care, DC planning, review of records, med rec, consults, notes, labs, rads, d/w nursing, family - 39 mins
Original Note:
Documented by User: Brennan Roblero MD, Resident 06/24/23 14:34
Today's Communication/Plan
-
D/C home today. F/U with cardiology outpatient
Replete Potassium
Replete Mag
Oral Lasix on D/C
Continue Metoprolol XR
Repeat BMP/Mag/INR labs on Tuesday.
Assessment / Plan
Assessment / Plan
Impression:
Acute HFpEF
Permanent Afib
Hypokalemia
Plan
#Acute HFpEF
-Lasix 40mg IV, transition to oral Lasix outpatient
-PT evaluation- Patient will benefit from Home PT to regain prior level of function
-Echo 06/22/23 EF 55-60%, stage II diastolic dysfunction, MS with mean gradient 5 mmHg and mod eccentric MR, mild with peak/mean 23/14 mmHg and mild aortic regurgitation
-Input/Output
-Daily weight
-Follow up with cardiology outpatient.
-BMP
#Permanent atrial fibrillation with Pacemaker
-Continue Coumadin
-Monitor INR
-Toprolol XL 25mg BID
#Hypokalemia
-Replete K+
#Hypertension
-Stable. Continue to monitor
Code Status: Full Code
Anticipated Discharge: Today
Subjective/Interval History
-
Patient reports right shoulder pain. Patient reports she tried to stand up from the bed and got a little bit confused. Reports pain is a 5 out of 10. Tylenol relieves the pain.
Objective Data
-
Labs:
Laboratory Results
06/24/23
04:27
WBC 11.5 H
Hgb 15.8
Hct 46.3
Plt Count 156
PT 32.1 H
INR 3.07
Sodium 138
Potassium 3.4 L
Chloride 92 L
Carbon Dioxide 36 H
BUN 53 H
Creatinine 1.3 H
Glucose 118 H
Calcium 9.4
Vital Signs:
Vital Signs
Temp Pulse Resp BP Pulse Ox
97.8 F 60 18 168/80 94
06/24/23 08:00 06/24/23 08:00 06/24/23 08:00 06/24/23 08:00 06/24/23 08:00
I&O
06/23/23 06/24/23 06/25/23
06:59 06:59 06:59
Intake Total 840 / 840 1360 / 1360
Output Total 1600 / 1600 2200 / 2200
Balance -760 / -760 -840 / -840
Review of Systems
-
History Source: Patient
All other systems: Reviewed and negative (except as documented )
Constitutional: Denies Fever
EENT: Reports No Symptoms Reported
Respiratory: Reports No Symptoms
Cardiac: Reports No Symptoms
Abdomen/GI: Reports No Symptoms
Musculoskeletal: Reports Other (Right shoulder pain)
Physical Exam
-
General: Well Developed and Well Nourished
HEENT: Normocephalic and Atraumatic
Respiratory: Clear to Auscultation; Negative Wheezes
Cardiac: Regular Rhythm and S1/S2
GI: Soft, Nontender and Nondistended
Musculoskeletal: No Clubbing, No Cyanosis and Other (trace edema b/l)
Skin: Warm and Dry
Neuro: Awake, Alert, Oriented and AO x 3
Psych: Calm
Data Reviewed
-
Labs: Labs Reviewed by me and Discussed with Physician

Documented by User: Hang Melendez MD 06/24/23 21:12
Review of Systems
-
All other systems: Reviewed and negative (full 12 point reviewed except as documented )
[2023-06-24] MEDS: KCL 40 MEQ PO (10:46)
[2023-06-24] MEDS: MAGNESIUM OXIDE 500 MG PO (10:46)
[2023-06-24 11:35] VITALS: BP 149/76
--- NOTE | 2023-06-24 12:23 | W.PN.CARDCBS ---
Addendum entered and electronically signed by Rigo Villa MD 06/24/23 12:45:
I saw and examined the patient.
The Certification Engineer's note was reviewed and I agree with the note.
Comment: Briefly, 88-year-old woman presenting with decompensated heart failure
Has undergone IV diuresis and her volume status is improved
Currently on room air and her breathing is comfortable
Plan for discharge on oral Lasix in place of hydrochlorothiazide
BMP in 1 week
Outpatient cardiology follow-up arranged
Discussed with family at bedside, will ask case management to look into visiting nursing
Original Note:
Today's Communication / Plan
-
P.o. Lasix 40 mg daily
Replete K/mag
BMP/mag/INR in 1 week
Toprol 25 mg twice daily
Cozaar 50 mg twice daily
Stop HCTZ
Outpatient cardiac follow-up arranged
Impression / Plan
-
PCP: Dr. Crispin Yost
Cardiology: Dr. Damon
Impression:
Acute HFpEF
EF 55-60% by echo 10/31/20
Mild to mod eccentric MR and mod MS with mean gradient 7 mmHg by echo 10/31/20, mean gradient 5 mmHg by echo 06/22/23
Mild to mod with mean gradient 16 mmHg by echo 10/31/20, mean gradient improved to 14 mmHg by echo 06/22/23
Permanent Afib
Chronic warfarin OAC
previously on Eliquis, but switched to warfarin after CVA managed at [facility] 08/2021
[facility] PPM since 2008, gen change 2015
h/o endometrial cancer managed with hysterectomy and BSO 2018
Hypokalemia
Echo 10/31/20: EF 55-60%, stage II diastolic dysfunction, mild to mod MS with mean gradient 7 mmHg and mod eccentric MR, mild to mod with mean gradient 16 mmHg and CHINEDU 1.7 cm sq, mild aortic insufficiency
Echo 06/22/23: EF 55-60%, stage II diastolic dysfunction, MS with mean gradient 5 mmHg and mod eccentric MR, mild with peak/mean 23/14 mmHg and mild aortic regurgitation
Plan:
-she reports improvement in breathing. Weight down 6 pounds overnight if accurate. Will plan for Lasix 40 mg daily upon discharge. Prior to admission was on HCTZ, which has been stopped
-Replete potassium. Replete magnesium.
-BMP/mag in 1 week
-Consider addition of SGLT2 inhibitor
-Pending blood pressure trends, may need additional antihypertensive agent
-In V paced rhythm on review of telemetry. She has permanent atrial fibrillation. Beta-jose changed to Toprol 25 mg twice daily this admission.
-INR 3.07. Goal INR 2-3. Continue outpatient Coumadin dose. Repeat INR next week with additional blood work with results to [facility] Coumadin clinic
-Case management consult for visiting nurses upon discharge
-Outpatient cardiac follow-up arranged. Will need continued follow-up of valvular disease noted on echocardiogram
-Okay for discharge to home today from cardiac standpoint
-Discussed with patient and family at bedside
HPI: Patient came to [facility] yesterday with URI symptoms for 2 weeks and was admitted with acute HF and cardiology has been consulted. Patient says that she started with congestion, cough and SOB int he last 2 weeks. No chest pain. She was not getting
better and started with orthopnea and LE edema so she came to [facility] yesterday and her pro-BNP was 5910 with small left and trace right pleural effusions on CXR. Patient was given Lasix 40 mg IV x1 and reports increased urine output and improvement in
resting SOB, but she continues with orthopnea.
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
Subjective
Date of Service: June 24, 2023
Reports improvement in breathing. Eager for discharge. No chest pain
Objective
Labs:
06/24/23 04:27
06/24/23 04:27
Labs
Hgb 15.8 g/dL (12.0-16.0) 06/24/23 04:27
Hct 46.3 % (37.0-47.0) 06/24/23 04:27
Plt Count 156 10^3/uL (130-400) 06/24/23 04:27
PT 32.1 Sec (11.4-14.6) H 06/24/23 04:27
INR 3.07 06/24/23 04:27
APTT 43.3 Sec (23.4-35.0) H 06/21/23 12:02
Sodium 138 mmol/L (135-145) 06/24/23 04:27
Potassium 3.4 mmol/L (3.5-5.1) L 06/24/23 04:27
BUN 53 mg/dl (7-17) H 06/24/23 04:27
Creatinine 1.3 mg/dL (0.6-1.0) H 06/24/23 04:27
Glucose 118 mg/dl (70-99) H 06/24/23 04:27
Vital Signs and I&O:
Vital Signs
Temp Pulse Resp BP Pulse Ox
97.8 F 61 20 149/76 94
06/24/23 11:35 06/24/23 11:35 06/24/23 11:35 06/24/23 11:35 06/24/23 08:00
Vital Signs
Temp Pulse Resp BP Pulse Ox
97.8 F 61 20 149/76 94
06/24/23 11:35 06/24/23 11:35 06/24/23 11:35 06/24/23 11:35 06/24/23 08:00
Intake & Output
06/22/23 06/23/23 06/24/23 06/25/23
07:59 07:59 07:59 07:59
Intake Total 480 / 480 840 / 840 1360 / 1360
Output Total 1800 / 1800 1600 / 1600 2200 / 2200
Balance -1320 / -1320 -760 / -760 -840 / -840
Physical Exam
Physical Exam
GEN: No distress, awake, alert. obese
HEENT: supple, anicteric, mmm, eomi
LUNGS: CTA B/L, no wheezes/rales
CV: Irreg, S1/S2, 2/6 murmur
ABD: soft, BS+, NT/ND
EXT: No cyanosis, clubbing. trace edema of B/L LE
NEURO: Gross non-focal
SKIN: Warm, pink, dry. No rash
[2023-06-24] MEDS: TYLENOL 650 MG PO (13:43)
--- NOTE | 2023-06-24 13:43 | CM ---
CM following re: d/c planning
Chart reviewed
CM met with the patient at bedside; IA completed
Pt states she & her spouse live in a split level home with [facility]
[employer] patient reports independence
Pt states she's been to for rehab, has a r/w & stair lift, and has had VN previously but doesn't recall the agency
Pt has prescription coverage and rx's are filled at [facility]
Pt PCP-Dr Crispin Yost
Post d/c recommendation is for VN
CM sent a TT to [facility] liaison to make her aware of the referral
No additional d/c needs noted
PLAN: d/c home with [facility]
--- NOTE | 2023-06-24 14:34 | W.DCSUMMARY ---
Addendum entered and electronically signed by Hang Melendez MD 06/24/23 21:19:
Attending Addendum:
Read reviewed and agree.
Original Note:
Documented by User: Brennan Roblero MD, Resident 06/24/23 14:51
Discharge Summary
Discharge Data
Date of Admission: 06/21/23
Date of Discharge: 06/24/23
-
Pending Results: No
Hospital Course
DISCHARGE DIAGNOSIS:
1. Acute Heart Failure preserved Ejection Fraction
2. Permanent Afib
3. Hypokalemia
4. Hypertension
BRIEF HOSPITAL COURSE: This is an 88y/o female with history of CVA, hypertension, hyperlipidemia who presented to ED for evaluation of worsening shortness of breath. Patient reported she had a URI 3 weeks ago, along with nasal congestion and
productive cough with clear sputum lasting 5 days. She reported symptoms of URI improved including cough but shortness of breath persisted. Since then, she has been experiencing shortness of breath on rest and exertion, hence decided to come to the
ED for evaluation. She denies any fever, chills, persistent cough, or chest pain. Examination with Chest Xray showed small left and trace right pleural effusions. pro-BNP on admission 5910. Echocardiogram evaluation�EF 55-60%. Over the course of her
hospital stay, Patient underwent IV diuresis and her volume status improved. She will be discharged home today with Oral Lasix, and outpatient cardiology follow-up arranged.
Permanent Afib: The patient will be continued on Warfarin. Repeat INR within a week with therapeutic INR Goal 2-3. Her home Beta Noe medication will be changed to Toprol 25mg twice daily.
Hypertension: Hydrochlorothiazide will be discontinued. Patient will be continued on Lasix
On the day of Discharge: Temp 97.8 BP: 149/76 Pulse: 61 O2 Sat: 94% on room air.
Physical Examination: Patient is awake in no acute distress. She is currently on room air and her breathing comfortable. S1/S2 present. Presence of trace edema Bilateral Lower extremities.
Discharge Plan
-
Patient Disposition: Home (Routine Discharge)
Discharge Diagnosis/Procedures: Acute CHF
Diet: 2 Gram Sodium and Restrict fluids to 48 oz
Activity: As tolerated
Driving Restrictions: As prior to admission
Bathing Restrictions: None
Blood Work: BMP/mag/INR in 1 week
Other Services: VN and PT
Specialty Instructions: Weigh Daily- Call MD for wt gain/loss 3 lbs overnight/5 lbs in 1 week
Activity Restrictions/Additional Instructions:
STOP HCTZ! you are now on lasix.
Instructions: *DCA Heart Failure Instructions
Referrals:
Crispin Yost DO [Family Provider] - in one week
Gilda Aguirre PA-C [Specified Professional Personl] - 07/06/23 1:40 pm (You have a cardiology follow up appointment at the [place] office. Please call with questions. )
Additional Discharge Medication Instructions: Oral Lasix 40 mg daily
BMP/mag/INR in 1 week
Toprol 25 mg twice daily
Cozaar 50 mg twice daily
Stop HCTZ
Potassium 20mg daily
Prescriptions:
New
furosemide 40 mg Tablet
40 mg PO DAILY 30 Days Qty: 30 0RF
metoprolol succinate 25 mg Tablet Extended Release 24 Hr
25 mg PO BID Qty: 30 0RF
potassium chloride 20 mEq packet
20 meq PO DAILY Qty: 30 0RF
Continued
losartan 50 mg Tablet
50 mg PO BID
atorvastatin 40 mg Tablet
40 mg PO QPM
aspirin 81 mg Tablet,Delayed Release (Dr/Ec)
81 mg PO DAILY
warfarin 1 mg Tablet
1.5 mg PO QPM
jfjdjnfmrcwf-wvjnrniw-iogyyo Tablet
1 tab PO DAILY
cholecalciferol (vitamin D3) 50 mcg (2,000 unit) Tablet
50 mcg PO DAILY
Fish Oil capsule
1,400 mg PO DAILY
Vitamin C
1 tab PO DAILY
Discontinued
metoprolol tartrate 50 MG tablet
25 mg PO QPM
metoprolol tartrate 50 MG tablet
50 mg PO DAILY
hydrochlorothiazide 25 mg Tablet
25 mg PO DAILY
Discharge Orders:
Discharge Patient (As Directed); Ordered 06/24/23
Ordered By: Brennan Roblero
Discharge Date and Time
Discharge Date/Time: 06/24/23 15:54

Documented by User: Hang Melendez MD 06/24/23 21:18
Discharge Summary
Discharge Data
Date of Admission: 06/21/23
Date of Discharge: 06/24/23
Discharge Plan
-
Patient Disposition: Home (Routine Discharge)
Discharge Diagnosis/Procedures: Acute CHF
Diet: 2 Gram Sodium and Restrict fluids to 48 oz
Activity: As tolerated
Driving Restrictions: As prior to admission
Bathing Restrictions: None
Blood Work: BMP/mag/INR in 1 week
Other Services: VN and PT
Specialty Instructions: Weigh Daily- Call MD for wt gain/loss 3 lbs overnight/5 lbs in 1 week
Activity Restrictions/Additional Instructions:
STOP HCTZ! you are now on lasix.
Instructions: *DCA Heart Failure Instructions
Referrals:
Crispin Yost DO [Family Provider] - in one week
Gilda Aguirre PA-C [Specified Professional Personl] - 07/06/23 1:40 pm (You have a cardiology follow up appointment at the [place] office. Please call with questions. )
Additional Discharge Medication Instructions: Oral Lasix 40 mg daily
BMP/mag/INR in 1 week
Toprol 25 mg twice daily
Cozaar 50 mg twice daily
Stop HCTZ
Potassium 20mg daily
Prescriptions:
New
furosemide 40 mg Tablet
40 mg PO DAILY 30 Days Qty: 30 0RF
metoprolol succinate 25 mg Tablet Extended Release 24 Hr
25 mg PO BID Qty: 30 0RF
potassium chloride 20 mEq packet
20 meq PO DAILY Qty: 30 0RF
Continued
losartan 50 mg Tablet
50 mg PO BID
atorvastatin 40 mg Tablet
40 mg PO QPM
aspirin 81 mg Tablet,Delayed Release (Dr/Ec)
81 mg PO DAILY
warfarin 1 mg Tablet
1.5 mg PO QPM
yyjdrtxcznid-ktbndmsy-dxuyed Tablet
1 tab PO DAILY
cholecalciferol (vitamin D3) 50 mcg (2,000 unit) Tablet
50 mcg PO DAILY
Fish Oil capsule
1,400 mg PO DAILY
Vitamin C
1 tab PO DAILY
Discontinued
metoprolol tartrate 50 MG tablet
25 mg PO QPM
metoprolol tartrate 50 MG tablet
50 mg PO DAILY
hydrochlorothiazide 25 mg Tablet
25 mg PO DAILY
Discharge Orders:
Discharge Patient (As Directed); Ordered 06/24/23
Ordered By: Brennan Roblero
Discharge Date and Time
Discharge Date/Time: 06/24/23 15:54
--- NOTE | 2023-06-24 15:43 | VNURNOTE ---
Home Health Liaison met with patient and spouse Rob at 1400 to discuss [facility] nurse/therapy, visits, schedule and homebound status. Patient is agreeable and understands that visits at home will be 2-3 x per week to assess and teach medical
management. Patient has a scale and is able to log a daily weight.
[facility] brochure provided with contact information. Patient is aware that [facility] will contact them for start of care in 1-2 days after discharge from .
[facility] referral completed in [facility].
--- NOTE | 2023-06-27 10:24 | W.HF.CON ---
Heart Failure
- LV Function
Left ventricular function study result: LV Ejection fraction >40%
Ejection Fraction Percentage: 55-60
- ARNI
Patient already on ARNI: No
Heart Failure ARNI Not Indicated: LV Ejection Fraction >/= 40%
- ACEI/ARB
Patient already on ACEI/ARB: Yes
- Beta Yesenia
Patient already on Evidence Based Beta Yesenia: Yes
- Mineralocorticord Receptor Antagonist
Patient already on MRA: No
Heart Failure MRA Not Indicated: LV Ejection Fraction > 40%
- SGLT-2 Inhibitor
Patient already on SGLT-2 Inhibitor: No
Heart Failure SGLT-2 Inhibitor Not Indicated: LV Ejection Fraction >40%
- Afib Anticoagulation
Patient already on Anticoagulation for Afib: Yes
- NYHA CHF Classification
NYHA CHF Classification Level: Class III - Symptoms w/ min exertion, interferes w/ nml daily activity
- ACC/AHA Stage
ACC/AHA Stage: Stage C: Symptomatic Heart Failure
== END 2023-06-24 15:54 | disposition home or self-care (01) | DRG 291 ==
LOC: 4 EAST ACU 16:49
PROVIDERS: Physician Assistant; Physician Assistant Medical; Student in an Organized Health Care Education/Training Program; ADMITTING PHYSICIAN Family Medicine; CONSULT PHYSICIAN Internal Medicine Cardiovascular Disease; EMERGENCY PHYSICIAN Emergency Medicine; FAMILY PHYSICIAN Family Medicine
DX: I13.0 Hypertensive heart and chronic kidney disease with heart failure and stage 1 through stage 4 chronic kidney disease, or unspecified chronic kidney disease (principal); I50.33 Acute on chronic diastolic (congestive) heart failure; J96.01 Acute respiratory failure with hypoxia; I48.21 Permanent atrial fibrillation; Z11.52 Encounter for screening for COVID-19; N18.32 Chronic kidney disease, stage 3b; K21.9 Gastro-esophageal reflux disease without esophagitis; Z79.01 Long term (current) use of anticoagulants; E87.6 Hypokalemia; E83.42 Hypomagnesemia
CPT/HCPCS: 71046; 80048; 80053; 82248; 83735; 83880; 85025; 85610; 85730; 87502; 87811; 93005; 93306; 93971; 96374; 97163; 99285